=== PATIENT | male | born 1985 | race Caucasian/White ===

== ENCOUNTER 2023-10-17 13:27 | Outpatient (CLI) | payer OTHER | END 2023-10-17 13:28 | disposition home or self-care (01) | LOC: CSHCT 13:27 | PROVIDERS: ATTEND Orthopaedic Surgery | DX: S72.491D Other fracture of lower end of right femur, subsequent encounter for closed fracture with routine healing (principal) ==

== ENCOUNTER 2024-09-05 18:35 | Emergency (ER) | payer OTHER ==
[2024-09-05] MEDS ORDERED: Acetaminophen 500 MG TAB ONE (20:21)
[2024-09-05] MEDS ORDERED: oxyCODONE 5 MG TAB PO SCH (22:45)
[2024-09-05] MEDS ORDERED: oxyCODONE 5 MG TAB ONE (22:49)
== END 2024-09-05 22:29 | disposition home or self-care (01) ==
LOC: CSHERS 18:35
DX: S83.91XA Sprain of unspecified site of right knee, initial encounter (principal); W18.49XA Other slipping, tripping and stumbling without falling, initial encounter
CPT/HCPCS: 99283